=== PATIENT | female | born 1985 | race Caucasian/White ===

== ENCOUNTER 2020-06-05 12:47 | Emergency (ER) | payer BC ==
[2020-06-05 13:02] VITALS: TEMP 98.2; BMI 22.1
[2020-06-05] MEDS ORDERED: SODIUM CHLORIDE 1,000 ML IV STA (13:54)
[2020-06-05] MEDS ORDERED: METOCLOPRAMIDE HCL INJECTION 10 MG/2 ML VIAL IVPB ONE (13:54)
[2020-06-05] MEDS ORDERED: METOCLOPRAMIDE HCL INJECTION 10 MG/2 ML VIAL ONE (14:25)
[2020-06-05 14:32] LABS: BASO % 0.3 % (0-2.0); EOS % 2.3 % (0-4.5); HEMATOCRIT 24.1 % (32.4-45.2); LYMPH % 26.4 % (8-40); MCH 30.7 pg (25.7-33.7); MCHC 33.4 g/dl (32.0-36.0); MEAN CELL VOLUME 92.1 fl (80-96); MEAN PLT VOLUME 7.9 fl (7.5-11.1); MONO % 9.9 % (3.8-10.2); NEUT % 61.1 % (42.8-82.8); PLATELET COUNT 253 K/MM3 (134-434); RBC 2.61 M/mm3 (3.60-5.2); RDW 12.9 % (11.6-15.6); WHITE BLOOD COUNT 6.4 K/mm3 (4.0-10.0)
[2020-06-05 14:43] LABS: INR 1.03 (0.83-1.09); PROTHROMBIN TIME (PATIENT) 12.7 SEC (9.7-13.0)
[2020-06-05 14:44] LABS: ALBUMIN 3.2 g/dl (3.4-5.0); BLOOD UREA NITROGEN 5.2 mg/dL (7-18); CALCIUM 8.6 mg/dL (8.5-10.1)
[2020-06-05 14:47] LABS: CREATININE 0.6 mg/dL (0.55-1.3)
[2020-06-05 14:49] LABS: BILIRUBIN,TOTAL 0.5 mg/dL (0.2-1); TOT PROT 6.3 g/dl (6.4-8.2)
[2020-06-05 18:41] VITALS: BP 109/71; PULSE 97
== END 2020-06-05 19:14 | disposition home or self-care (01) ==
LOC: JER 12:47
PROC: 3E033GC Introduction of Other Therapeutic Substance into Peripheral Vein, Percutaneous Approach (ICD-10-PCS; principal; 2020-06-05)
PROC: 3E033GC Introduction of Other Therapeutic Substance into Peripheral Vein, Percutaneous Approach (ICD-10-PCS; 2020-06-05)
PROC: 3E0337Z Introduction of Electrolytic and Water Balance Substance into Peripheral Vein, Percutaneous Approach (ICD-10-PCS; 2020-06-05)
DX: D64.9 Anemia, unspecified (principal); M79.604 Pain in right leg
CPT/HCPCS: 36415; 71275-TC; 80053; 84703; 85025; 85610; 86850; 86900; 86901; 93005; 93010; 93971-TC; 99285-25; Q9967